=== PATIENT | male | born 1965 | race Caucasian/White ===

== ENCOUNTER 2017-09-03 03:00 | Emergency (ER) | payer BC, SELFPAY ==
[2017-09-03 03:01] VITALS: BP 187/116; PULSE 66; RESP 19; TEMP 35.8; O2SAT 100; BMI 38.5
--- NOTE | 2017-09-03 03:09 | CT_ITS ---
STUDY: CT ABDOMEN AND PELVIS WITHOUT CONTRAST REASON FOR EXAM: Male, 51 years old. Left flank pain RADIATION DOSAGE (If Supplied By Facility): CTDIvol = ( 22.22 ) mGy, DLP = ( 1265.99 ) mGycm TECHNIQUE: Transaxial images were obtained from the dome of the diaphragm to the symphysis pubis without oral contrast, and without intravenous contrast. Sagittal and coronal images were reconstructed. Individualized dose optimization techniques were used for this CT. COMPARISON: None. FINDINGS: The visualized lung bases are unremarkable. The visualized portions of the heart are within normal limits. Normal liver. Normal gallbladder and extrahepatic biliary system. Normal spleen. Normal pancreas. Normal bilateral adrenal glands. 2 mm nonobstructing right renal stone. A 2 mm stone is present in the distal left ureter or the left bladder base. There is mild acute obstructive uropathy on the left. Normal visualized stomach. Normal small intestine. There are multiple colonic diverticula consistent with diverticulosis. The appendix is visualized and appears normal. Normal abdominal aorta. Normal inferior vena cava. Normal retroperitoneum. Normal abdominal wall. Normal osseous structures. CT/Abdomen/Pelvis without Cont IMPRESSION: A 2 mm stone is present in the distal left ureter or the left bladder base. There is mild acute obstructive uropathy on the left. Electronically Signed: Mykel King MD at 4:52 EDT Tel , Service support ,
--- NOTE | 2017-09-03 03:11 | ED.DCSUM_ITS ---
- ER Visit Summary Date of Service: 09/03/17 Chief Complaint: [] Left flank pain History of Present Illness: The patient is a 51 M awoke with left flank pain an hour ago at sleep continuous sharp pain in the left flank moderate severity associated some mild nausea. He is ibuprofen. No history of kidney stones. Physical Examination: Vital signs reviewed General: Well-nourished well-developed appears uncomfortable in pain Head: Normocephalic atraumatic Eyes: Pupils equal round and reactive to light extraocular movements intact ENT: TMs clear no hemotympanum no trauma Neck: Nontender full range of motion Cardiovascular: Regular rate rhythm no murmurs normal S1-S2 Respiratory: No distress clear to auscultation bilaterally chest nontender Abdomen: Soft nontender nondistended normal bowel sounds no masses Back: Nontender no CVA tenderness Extremities: Nontender active range of motion ?4 extremities no trauma Skin: Normal color no trauma Neuro alert oriented cranial nerves II through XII intact normal strength sensation reflexes Test Results: [] Emergency Department Course and Treatment: [] IV fluids morphine Zofran and Toradol given. Lab work CT abdomen pelvis obtained work shows a 2 mm kidney stone distal left ureter. Chemistries normal except BUN 31. CBC normal. Patient given IV fluids morphine Dilaudid Zofran Toradol. On reevaluation he is pain-free. Will be given Percocet Zofran for home. Will follow-up as an outpatient with urology. He may have already passed it. Treatment Plan: [] Disposition: [] Impression: [] Left-sided kidney stone 2 mm This note was generated with [employer] dictation software. It may contain incorrect words, spelling, and punctuation that were not noted in review of the chart prior to signing ED Disposition - Plan for ED Patient: Chief Complaint: Flank Pain Referrals: Hemal Salazar MD [Primary Care Provider] -
[2017-09-03] MEDS: Ketorolac 30 MG/ML Syringe IV (03:17)
[2017-09-03] MEDS: Ondansetron 4 MG/2 ML Vial IV (03:17)
[2017-09-03] MEDS: morphine 8 MG/ML Syringe IV (03:17)
[2017-09-03] MEDS: 0.9% Normal Saline 1,000 ML 250 ML IV (03:17)
[2017-09-03 03:30] LABS: Absolute Lymphocyte Count 4.12 X10^3/ul (0.83-4.51); Absolute Neutrophil Count 5.5 X10^3/uL (2.0-7.7); Basophil# 0.04 X10^3/uL; Basophil% 0.4 % (0-1); Eosinophil# 0.37 X10^3/uL; Eosinophils% 3.5 % (0-5); Hematocrit 44.6 % (40-54); Hemoglobin 15.1 g/dl (13.0-16.5); Lymphocyte # 4.12 X10^3/ul (4.0); Lymphocyte % 38.5 % (19-41); Mean Corp Hgb Conc 33.9 g/gl (32-36); Mean Corpuscular Hgb 28.5 pg (27.0-32.0); Mean Corpuscular Volume 84.3 fL (80-94); Mean Platelet Vol. 10.2 fl (6.2-12.0); Monocyte# 0.63 X10^3/uL; Monocyte% 5.9 % (0-10); Neutrophil # 5.51 X10^3/uL (2.7-7.7); Neutrophil % 51.4 % (47-70); POSITIVE COUNT NO; POSITIVE DIFFERENTIAL NO; POSITIVE MORPHOLOGY NO; Platelet Count 240 K/mm3 (150-450); RBC Distribution Width CV 13.6 % (11.6-14.6); RBC Distribution Width SD 41.5 fl (35.1-43.9); Red Blood Count 5.29 M/mm3 (4.6-6.2); White Blood Count 10.7 K/mm3 (4.4-11.0)
[2017-09-03 03:39] LABS: Anion Gap 10 (5-15); BUN 31 mg/dL (7-18); BUN/Creat Ratio 29.8 RATIO (10-20); Calcium,Total 8.7 mg/dL (8.5-10.1); Chloride 109 mmol/L (98-107); Creatinine, Serum 1.04 mg/dL (0.70-1.30); EST Glomerular Filtration Rate 80 mL/min (>60); Est Glom Filt Rate - Afr Amer 96 mL/min (>60); Estimated Creatinine Clearance 88.49 ml/min; Glucose 119 mg/dL (74-106); Sodium Level 142 mmol/L (136-145)
[2017-09-03] MEDS: HYDROmorphone 1 MG/ML Syringe IV (03:46)
[2017-09-03] MEDS: 0.9% Normal Saline 1,000 ML 999 ML IV (03:46)
[2017-09-03 05:21] VITALS: BP 143/103; PULSE 58; RESP 16; O2SAT 98
--- NOTE | 2017-09-03 05:22 | ED.DEP ---
ED Disposition - Plan for ED Patient: Disposition: Home or Assisted Living Chief Complaint: Flank Pain Instructions: ED Stone Renal W Colic Prescriptions: Oxycodone HCl/Acetaminophen [Percocet 5/325] 2 tab PO Q6H PRN PRN 3 Days #12 tab PRN Reason: Pain Ondansetron [Zofran Odt] 4 mg PO Q8H PRN PRN #10 tab PRN Reason: Nausea Referrals: Hemal Salazar MD [Primary Care Provider] - Don Feliz MD [STAFF PHYSICIAN] -
== END 2017-09-03 05:28 | disposition home or self-care (01) ==
PROVIDERS: Emergency Provider Emergency Medicine; Family Provider Family Medicine; PCP Family Medicine
DX: N20.0 Calculus of kidney (principal); E66.9 Obesity, unspecified
CPT/HCPCS: 74176; 80048; 85025; 96361; 96374; 96375; 99282; A4216; J2405

== ENCOUNTER → 2018-08-15 | Outpatient (CLI) | payer BC, SELFPAY ==
--- NOTE | 2018-08-15 13:34 | VDLE_ITS ---
Reason For Study: LEG PAIN RIGHT LEFT GSV is normal. CFV is compressible, spontaneous, phasic, CFV is compressible, spontaneous, phasic, competent, and demonstrates normal competent and demonstrates normal augmentation. augmentation. FV is compressible, spontaneous, phasic, competent and demonstrates normal augmentation. POP V is compressible, spontaneous, phasic, competent and demonstrates normal augmentation. T/P Trunk is compressible. PTV is compressible. RT PerV is compressible. Procedure Exam performed in department. A preliminary report was called and/or faxed to Dr. Salazar. Interpretation Summary Deep veins of the right lower extremity are patent and compressible segmentally. There is no evidence of right lower extremity deep vein thrombosis. Valvular competence appears intact within the proximal deep venous system on the right . The right greater saphenous vein appears patent and compressible segmentally. Ordering Physician: Erick Salazar Referring Physician: Erick Salazar Performed By: Yola Glass RVT
== END | disposition home or self-care (01) ==
LOC: CVS 13:33
PROVIDERS: Family Provider Family Medicine; PCP Family Medicine; Referring Provider Specialist; Visit Provider Specialist
DX: M79.661 Pain in right lower leg (principal)
CPT/HCPCS: 93971

== ENCOUNTER 2021-07-08 15:01 | Emergency (ER) | payer BC, SELFPAY ==
[2021-07-08 15:03] VITALS: BP 156/106; PULSE 79; RESP 14; TEMP 35.7; O2SAT 93; BMI 41.8
[2021-07-08] MEDS: Albuterol 2.5 MG/3 ML VIAL.NEB. INHALATION (15:29)
[2021-07-08 15:31] VITALS: PULSE 70; RESP 20
--- NOTE | 2021-07-08 15:33 | ED.VIS.DYS ---
HPI History of Present Illness Chief Complaint: Occup Expose Detail of Chief Complaint: Exposure to bleach and phosphoric acid Informant: patient and spouse/S.O. Onset/Context/Timing Onset: Hours Context: sudden Timing: Continuous Quality: Positive for Dyspnea on exertion Current Severity: Mild Maximum Severity: Moderate Worsened by: Exertion Relieved by: Nothing Associated Symptoms cough; Negative for rhinorrhea, post nasal drip, ear pain, fever, sore throat, subjective, chills, sweats, clear sputum, white sputum, yellow sputum or green sputum Chest Pain: Positive for None Narrative Narrative: Patient is a 55-year-old male with history of elevated cholesterol who presents because of shortness of breath after mixing bleach with phosphoric acid. States there was a fan running. He was in a confined area. His exposure time was a minute or 2 at most. He had asthma as a child. Was in incubator for months when he was a child. He has no other complaints. PE Risk Factors: Negative for Cancer, OCP + Smoking + > 35, Prior DVT or PE, Recent immobilization, Recent surgery and Recent travel Prior similar symptoms: No Recent Illness/Hospitalization: No PFSH PFSH Medical History (Updated 07/08/21 @ 16:[address] Uriah Waggoner MD) Asthma Lumbar disc herniation with radiculopathy Home Medications ondansetron 4 mg PO Q8H PRN PRN #10 tab 09/03/17 [Rx Last Taken Unknown] oxycodone-acetaminophen 2 tab PO Q6H PRN PRN 3 Days #12 tab 09/03/17 [Rx Last Taken Unknown] albuterol sulfate [Ventolin HFA] 2 puff INHALATION Q2H PRN #1 g 07/08/21 [Rx Last Taken Unknown] prednisone 60 mg PO DAILY #9 tablet 07/08/21 [Rx Last Taken Unknown] Allergy/AdvReac Type Severity Reaction Status Date / Time No Known Allergies Allergy Verified 07/08/21 15:03 Social History (Updated 07/08/21 @ 15:[address] Uriah Waggoner MD) household members: spouse Smoking Status: Never smoker alcohol intake: never substance use type: does not use what type of physical activity do you participate in: none ROS ROS ED Constitutional Constitutional ED: Denies chills, fever(s), sweats or weight loss Eyes Eyes: Denies blurry vision, change in vision or diplopia ENT ENT ED: Denies ear pain, rhinorrhea or sore throat Cardiovascular Cardiovascular: Denies chest pain, orthopnea, palpitations, paroxysmal nocturnal dyspnea or racing heartbeat Respiratory/Chest Respiratory/Chest: Reports cough, dyspnea and dyspnea on exertion; Denies orthopnea, paroxysmal nocturnal dyspnea or sputum Gastrointestinal Gastrointestinal: Denies abdominal pain, diarrhea, nausea or vomiting Hematologic/Lymphatic Hematologic/Lymphatic: Denies easy bleeding, easy bruising or lymphadenopathy Allergic/Immunologic Allergic/Immunologic ED: Denies mouth swelling, tongue swelling or urticaria EXAM Physical Exam Const Vital Signs: 07/08/21 15:03 07/08/21 15:31 07/08/21 15:41 Temperature 96.2 F L Temperature Source Temporal Pulse Rate 79 70 78 Respiratory Rate 14 20 H 16 Respiratory Effort Respiratory Depth Respiratory Pattern Normal Blood Pressure 156/106 H 126/78 H Blood Pressure Mean 122 94 Pulse Ox 93 98 Oxygen Delivery Method Room Air Room Air 07/08/21 15:44 Temperature Temperature Source Pulse Rate Respiratory Rate Respiratory Effort Normal Respiratory Depth Normal Respiratory Pattern Normal Blood Pressure Blood Pressure Mean Pulse Ox Oxygen Delivery Method Room Air Positive well nourished, well developed and obese General Appearance ED: well developed; Negative for NAD or pallor Nutritional Appearance: obese HEENT Reports TM's clear and moist mucous membranes atraumatic and tenderness Tympanic Membrane ED: Yes TM's clear Eyes PERRL and EOMs intact bilaterally General Eye ED: Negative for pale conjunctiva or scleral icterus Neck no lymphadenopathy, supple, no meningeal signs and no JVD Resp normal respiratory effort and No clear to auscultation bilaterally Auscultation: wheezes expiratory wheezes and throughout and diminished lung sounds Cardio regular rate, regular rhythm, S1 normal heart sound, S2 normal heart sound and no murmurs GI non-tender, non-distended and no masses Auscultation: normoactive bowel sounds Palpation: soft Back/Spine normal to inspection Back/Spine Narrative: Skin is slightly flushed. Extremity normal to inspection Neuro oriented x3 and CN's II-XII intact bilaterally Farnam Coma Scale: document GCS findings Spontaneous Obeys Commands Oriented 15 Sensorium / Orientation: alert Psych mental status grossly normal Thought Process: normal thought process Skin no wounds General Skin Exam: Negative for jaundice or pallor Lesions: no lesions MDM MDM MDM Narrative Medical decision making narrative: Patient with wheezing due to chemical exposure/pneumonitis. Chest x-ray was ordered. Aerosol treatment and prednisone. Patient was reassessed at 1624. He is wheeze free. He is no longer coughing. Plan is to discharge with prescription for inhaler and short burst of prednisone. Radiography Chest X-Ray - ED: 2 View (Was reviewed and independently interpreted by me as negative for acute process. Cardiac silhouette size normal. Lung parenchyma reveals mild chronic interstitial changes. The perihilar regions unremarkable. The also structures are unremarkable. Interpreted by me at 1600) Diagnostic Testing: Clinical Impression(s) from Imaging Studies Chest X-Ray 07/08/21 15:47 IMPRESSION: No radiographic evidence of acute cardiopulmonary disease. at 1619 Reported and signed by: Mona Manley MD Electronically Signed: Mona Manley MD at 16:18 EDT Reading Location ID and State: [facility] / [place] Tel , Service support , Discharge Plan Triage Chief Complaint: Occup Expose ED Provider: Uriah Waggoner Dx/Rx/DC Orders Clinical Impression: Acute chemical pneumonitis, Acute bronchospasm Instructions: ED Chemical Inhalation Prescriptions: New albuterol sulfate [Ventolin HFA] 1 INHALER inhaler 2 puff inhalation Q2H PRN (Reason: Wheezing) Qty: 1 RF: 0 prednisone 20 MG tablet 60 mg PO DAILY Qty: 9 RF: 0 No Action oxycodone-acetaminophen 1 TABLET tablet 2 tab PO Q6H PRN PRN (Reason: Pain) 3 Days Qty: 12 RF: 0 ondansetron 4 MG tablet 4 mg PO Q8H PRN PRN (Reason: Nausea) Qty: 10 RF: 0 Primary Care Provider: Hemal Salazar Referrals: Hemal Salazar MD [Primary Care Provider] - Disposition Disposition: Home, Self Care
[2021-07-08 15:41] VITALS: BP 126/78; PULSE 78; RESP 16; O2SAT 98
[2021-07-08 15:44] VITALS: O2SAT 96
--- NOTE | 2021-07-08 15:47 | RAD_ITS ---
HISTORY: Chemical exposure, wheezing and coughing. TECHNIQUE: XR Chest 2 Views. # of images incl. paperwork: 2. COMPARISON: None. FINDINGS: CARDIOMEDIASTINAL STRUCTURES: Cardiac silhouette not enlarged. Mediastinal contour unremarkable. LUNGS: Radiographically clear. PLEURA: No pleural effusion or pneumothorax. OSSEOUS STRUCTURES: Unremarkable. RAD/Chest PA and Lateral IMPRESSION: No radiographic evidence of acute cardiopulmonary disease. at 1619 Reported and signed by: Mona Manley MD Electronically Signed: Mona Manley MD at 16:18 EDT ,
[2021-07-08] MEDS: predniSONE 20 MG Tablet 60 MG PO (16:04)
[2021-07-08 16:36] VITALS: BP 132/78; PULSE 66; RESP 18; TEMP 36.6; O2SAT 98
== END 2021-07-08 16:37 | disposition home or self-care (01) ==
PROVIDERS: Emergency Provider Emergency Medicine; PCP Family Medicine; Visit Provider Emergency Medicine
DX: T54.2X1A Toxic effect of corrosive acids and acid-like substances, accidental (unintentional), initial encounter (principal); Z68.41 Body mass index [BMI] 40.0-44.9, adult; J68.0 Bronchitis and pneumonitis due to chemicals, gases, fumes and vapors; E78.00 Pure hypercholesterolemia, unspecified; T54.94XA Toxic effect of unspecified corrosive substance, undetermined, initial encounter; Y92.9 Unspecified place or not applicable; J45.909 Unspecified asthma, uncomplicated; E66.9 Obesity, unspecified
CPT/HCPCS: 71046; 94640; 99284

== ENCOUNTER 2022-03-14 13:02 | Emergency (ER) | payer BC, SELFPAY ==
[2022-03-14 13:05] VITALS: BP 165/111; PULSE 79; RESP 21; TEMP 36.6; O2SAT 97; BMI 43.7
--- NOTE | 2022-03-14 13:22 | EKG12_ITS ---
Test Reason : CP Blood Pressure : / mmHG Vent. Rate : 072 BPM Atrial Rate : 072 BPM P-R Int : 170 ms QRS Dur : 162 ms QT Int : 432 ms P-R-T Axes : 021 -33 -03 degrees QTc Int : 473 ms Normal sinus rhythm Left axis deviation Right bundle branch block Abnormal ECG Confirmed by CORETTA BOURGEOIS, EYAL ([id number]), senior technical editor NORMAN VILLATORO ([id number]) on 03/15/2022 12:07:20 PM Referred By: ANAHY Confirmed By:EYAL HITCHCOCK MD
--- NOTE | 2022-03-14 13:22 | RAD_ITS ---
HISTORY: chest pain. TECHNIQUE: XR Chest 1 View. COMPARISON: 07/08/2021. FINDINGS: CARDIOMEDIASTINAL BORDERS: Cardiac silhouette within normal limits in size. Mediastinal contour unremarkable. LUNGS: Radiographically clear. PLEURA: No pleural effusion or pneumothorax seen. OSSEOUS STRUCTURES: Unremarkable. RAD/Chest 1 View (Portable) IMPRESSION: No acute cardiopulmonary process identified. Electronically Signed: Mona Manley MD at 13:53 EST ,
[2022-03-14] MEDS: Aspirin 81 MG TAB.CHEW 324 MG PO (13:27)
[2022-03-14 13:34] LABS: Absolute Lymphocyte Count 2.54 X10^3/uL (0.83-4.51); Absolute Neutrophil Count 4.5 X10^3/uL (2.0-7.7); Basophil# 0.04 X10^3/uL; Basophil% 0.5 % (0-1); Eosinophil# 0.42 X10^3/uL; Eosinophils% 5.2 % (0-5); Hematocrit 45.4 % (40-54); Hemoglobin 15.7 g/dL (13.0-16.5); Lymphocyte # 2.54 X10^3/ul (0.83-4.51); Lymphocyte % 31.4 % (19-41); Mean Corp Hgb Conc 34.6 g/dL (32-36); Mean Corpuscular Hgb 28.9 pg (27.0-32.0); Mean Corpuscular Volume 83.5 fL (80-94); Mean Platelet Vol. 9.6 fl (6.2-12.0); Monocyte# 0.55 X10^3/uL; Monocyte% 6.8 % (0-10); NRBC Flagged by Analyzer 0 % (0-5); Neutrophil # 4.51 X10^3/uL (2.7-7.7); Neutrophil % 55.6 % (47-70); Platelet Count 229 K/mm3 (150-450); RBC Distribution Width CV 13.3 % (11.6-14.6); RBC Distribution Width SD 40.5 fl (35.1-43.9); Red Blood Count 5.44 M/mm3 (4.6-6.2); White Blood Count 8.1 K/mm3 (4.4-11.0)
--- NOTE | 2022-03-14 13:42 | EDS_ITS ---
HPI <MONTSE Arciniega - Last Filed: 03/14/22 18:04> History of Present Illness Chief Complaint: Chest Pain Narrative Narrative: 56-year-old male with PMH of HLD, obesity presents with dizziness. He was standing in his [employer] lobby talking to someone when he suddenly felt lightheaded with mild chest pressure and sat down and the symptoms resolved. He now feels back to normal. There is no associated shortness of breath, nausea, vomiting or diaphoresis. No visual loss or diplopia. No other focal motor or sensory changes. He states he has been very stressed and during this event was actually telling a story about his friend who had significant medical problems. He thinks he may have just been anxious. PFSH <MONTSE Arciniega - Last Filed: 03/14/22 18:04> [facility] Medical History (Updated 03/14/22 @ 18:04 by MONTSE Arciniega) Asthma Lumbar disc herniation with radiculopathy Home Medications albuterol sulfate 90 mcg/actuation aerosol inhaler (Ventolin HFA) 2 puff inhalation Q2H PRN Wheezing #1 g 07/08/21 [Rx Last Taken Unknown] Allergy/AdvReac Type Severity Reaction Status Date / Time No Known Allergies Allergy Verified 03/14/22 13:03 Social History (Updated 07/08/21 @ 15:[address] Uriah Waggoner MD) household members: spouse Smoking Status: Never smoker alcohol intake: never substance use type: does not use what type of physical activity do you participate in: none EXAM <MONTSE Arciniega - Last Filed: 03/14/22 18:04> Physical Exam Const Vital Signs: 03/14/22 13:05 03/14/22 13:22 03/14/22 16:02 Temperature 97.9 F Temperature Source Temporal Pulse Rate 79 84 Respiratory Rate 21 H 18 Blood Pressure 165/111 H 151/107 H Blood Pressure Mean 129 121 Pulse Ox 97 95 Oxygen Delivery Method Room Air Room Air Room Air 03/14/22 16:33 03/14/22 16:42 Temperature Temperature Source Pulse Rate Respiratory Rate 18 Blood Pressure 132/94 H Blood Pressure Mean 106 Pulse Ox Oxygen Delivery Method <Dr. Renard Bahena MD - Last Filed: 03/14/22 16:22> Physical Exam Const Vital Signs: 03/14/22 13:05 03/14/22 13:22 03/14/22 16:02 Temperature 97.9 F Temperature Source Temporal Pulse Rate 79 84 Respiratory Rate 21 H 18 Blood Pressure 165/111 H 151/107 H Blood Pressure Mean 129 121 Pulse Ox 97 95 Oxygen Delivery Method Room Air Room Air Room Air 03/14/22 16:33 03/14/22 16:42 Temperature Temperature Source Pulse Rate Respiratory Rate 18 Blood Pressure 132/94 H Blood Pressure Mean 106 Pulse Ox Oxygen Delivery Method [facility] <MONTSE Arciniega - Last Filed: 03/14/22 18:04> [facility] Narrative Medical decision making narrative: PeersPatient presents with an episode of lightheadedness and chest pressure that has fully resolved upon arrival. He appears well and nontoxic. BP 165/111 with otherwise normal vital signs. His medical exam is unremarkable. EKG is normal sinus rhythm with RBBB but no acute ischemia. Troponins x2 are negative and the rest of his blood work and chest x-ray is unremarkable. Patient will need an outpatient stress test and since he does remain persistently hypertensive at 151/107 I will discuss with his primary care to arrange a stress test and discuss BP. Dr. Salazar recommended starting lisinopril, however then we rechecked a manual pressure and it was 130/90 so patient was instructed to call his office this week to discuss blood pressure and arrange a stress test. Return for any new or worsening symptoms. He was discharged in stable condition. I have personally performed a face to face assessment of the patient and have reviewed the SURESH Note. I performed a substantive portion of the visit including all aspects of the following. My gregory findings include: History is [56-year-old male [employer] with atypical chest discomfort and near syncope. Being evaluated by myself with our physician web production assistant. Patient has no cardiac history. A friend of his had recent coronary disease and needed 3 stents. Multiple family members of him have been treated for coronary artery disease and MIs. He denies any recent exertional chest pain. 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 He denies any recent illness. 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 He is a non-smoker.] Exam is [middle-aged male no acute distress. Vital signs stable afebrile. HEENT exam normal. Neck nontender. Lungs are clear. Heart regular rhythm no murmur. Rate about 80. Chest wall nontender. Abdomen soft nontender. Moving all 4 extremities. Neurologic exam normal.] Medical Decision Making [patient's work-up is unremarkable. White count 8. H&H 15 and 45. Electrolytes unremarkable gap of 7. Normal creatinine. First and second troponin 2 hours apart were both normal at 16 and 18. We will speak to the patient's primary care physician. He will be discharged home. Outpatient follow-up for outpatient stress testing. We will recheck his blood pressure prior to discharge.] Other additions or changes: [None] Lab Data Labs: Laboratory Results - last 24 hr 03/14/22 03/14/22 03/14/22 13:20 13:20 15:50 WBC 8.1 RBC 5.44 Hgb 15.7 Hct 45.4 MCV 83.5 MCH 28.9 MCHC 34.6 RDW Std Deviation 40.5 RDW Coeff of Michael 13.3 Plt Count 229 MPV 9.6 Immature Gran % (Auto) 0.500 Neut % (Auto) 55.6 Lymph % (Auto) 31.4 [place] % (Auto) 6.8 Eos % (Auto) 5.2 H Baso % (Auto) 0.5 Absolute Neuts (auto) 4.5 Absolute Lymphs (auto) 2.54 Nucleated RBC % 0 Sodium 140 Potassium 3.6 Chloride 108 H Carbon Dioxide 25.0 Anion Gap 7 BUN 27 H Creatinine 0.87 Estim Creat Clear Calc 96.73 Est GFR (MDRD) Af Amer 116 Est GFR (MDRD) Non-Af 96 BUN/Creatinine Ratio 30.9 H Glucose 153 H Calcium 9.4 Troponin I High Sens 16 18 Radiography Diagnostic Testing: Clinical Impression(s) from Imaging Studies Chest X-Ray 03/14/22 13:22 IMPRESSION: No acute cardiopulmonary process identified. Electronically Signed: Mona Manley MD at 13:53 EST , <Dr. Renard Bahena MD - Last Filed: 03/14/22 16:22> MDM MDM Narrative Medical decision making narrative: I have personally performed a face to face assessment of the patient and have reviewed the SURESH Note. I performed a substantive portion of the visit including all aspects of the following. My gregory findings include: History is [56-year-old male [employer] with atypical chest discomfort and near syncope. Being evaluated by myself with our physician web production assistant. Patient has no cardiac history. A friend of his had recent coronary disease and needed 3 stents. Multiple family members of him have been treated for coronary artery disease and MIs. He denies any recent exertional chest pain. 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 He denies any recent illness. Says he is under a lot of stress because he has a lot of decisions to make regarding his forearm and additional purchase of land. He is a non-smoker.] Exam is [middle-aged male no acute distress. Vital signs stable afebrile. HEENT exam normal. Neck nontender. Lungs are clear. Heart regular rhythm no murmur. Rate about 80. Chest wall nontender. Abdomen soft nontender. Moving all 4 extremities. Neurologic exam normal.] Medical Decision Making [patient's work-up is unremarkable. White count 8. H&H 15 and 45. Electrolytes unremarkable gap of 7. Normal creatinine. First and second troponin 2 hours apart were both normal at 16 and 18. We will speak to the patient's primary care physician. He will be discharged home. Outpatient follow-up for outpatient stress testing. We will recheck his blood pressure prior to discharge.] Other additions or changes: [None] Lab Data Attestation: I reviewed the patient's lab results. Lab results narrative: CBC unremarkable. BMP unremarkable. First troponin 16. Second troponin 18. Labs: Laboratory Results - last 24 hr 03/14/22 03/14/22 03/14/22 13:20 13:20 15:50 WBC 8.1 RBC 5.44 Hgb 15.7 Hct 45.4 MCV 83.5 MCH 28.9 MCHC 34.6 RDW Std Deviation 40.5 RDW Coeff of Michael 13.3 Plt Count 229 MPV 9.6 Immature Gran % (Auto) 0.500 Neut % (Auto) 55.6 Lymph % (Auto) 31.4 [place] % (Auto) 6.8 Eos % (Auto) 5.2 H Baso % (Auto) 0.5 Absolute Neuts (auto) 4.5 Absolute Lymphs (auto) 2.54 Nucleated RBC % 0 Sodium 140 Potassium 3.6 Chloride 108 H Carbon Dioxide 25.0 Anion Gap 7 BUN 27 H Creatinine 0.87 Estim Creat Clear Calc 96.73 Est GFR (MDRD) Af Amer 116 Est GFR (MDRD) Non-Af 96 BUN/Creatinine Ratio 30.9 H Glucose 153 H Calcium 9.4 Troponin I High Sens 16 18 Radiography Chest X-Ray - ED: 1 View, Read by ED Physician, Read by Radiologist, Heart, Lungs, Mediastinum, Bony Structures, No Acute Disease and Chronic Changes Diagnostic Testing: Clinical Impression(s) from Imaging Studies Chest X-Ray 03/14/22 13:22 IMPRESSION: No acute cardiopulmonary process identified. Electronically Signed: Mona Manley MD at 13:53 EST Reading Location ID and State: [facility] / [place] Tel , Service support , Chest x-ray, portable, single view interpreted by myself and radiologist shows no acute abnormality. Rhythm Strip Rhythm Strip: Sinus Rhythm Rate: 72 Ectopy: None EKG Initial EKG: Attestation: I personally reviewed and interpreted this EKG as follows: Interpretation: Sinus Rhythm and No Acute Injury Pattern Comments: Normal sinus rhythm. Rate 72. Right bundle branch block. Discharge Plan Triage Chief Complaint: Chest Pain ED Midlevel Provider: Julita Segura ED Provider: Renard Bahena Dx/Rx/DC Orders Clinical Impression: Chest pain Instructions: Blood Pressure Check Steps, ED Chest Pain, Uncertain Cause Prescriptions: No Action albuterol sulfate [Ventolin HFA] 1 INHALER inhaler 2 puff inhalation Q2H PRN (Reason: Wheezing) Qty: 1 0RF Primary Care Provider: Hemal Salazar Referrals: Hemal Salazar MD [Primary Care Provider] - Activity Restrictions/Additional Instructions: Please check your blood pressure once a day at home and keep a log and take it to your appointment. Call Dr. Calderon's office to set up an appointment to check your blood pressure and arrange a stress test. If you develop chest pain prior to seeing your doctor come back to the ER. Disposition Disposition: Home, Self Care Discharge Date/Time: 03/14/22 16:42
[2022-03-14 13:49] LABS: Anion Gap 7 (5-15); BUN 27 mg/dL (7-18); BUN/Creat Ratio 30.9 RATIO (10-20); Calcium,Total 9.4 mg/dL (8.5-10.1); Chloride 108 mmol/L (98-107); Creatinine, Serum 0.87 mg/dL (0.70-1.30); EST Glomerular Filtration Rate 96 mL/min (>60); Est Glom Filt Rate - Afr Amer 116 mL/min (>60); Estimated Creatinine Clearance 96.73 ml/min; Glucose 153 mg/dL (74-106); Potassium 3.6 mmol/L (3.5-5.1); Sodium Level 140 mmol/L (136-145); Troponin-I HS (w/2H Reflex) 16 pg/mL (3.0-78.0)
[2022-03-14 15:29] LABS: Reflex Troponin-HS? (from REC) Y
[2022-03-14 16:02] VITALS: BP 151/107; PULSE 84; RESP 18; O2SAT 95
[2022-03-14 16:14] LABS: Troponin-I HS 18 pg/mL (3.0-78.0)
[2022-03-14 16:33] VITALS: BP 132/94
[2022-03-14 16:42] VITALS: RESP 18
== END 2022-03-14 16:42 | disposition home or self-care (01) ==
PROVIDERS: Physician Assistant; Emergency Provider Emergency Medicine; PCP Family Medicine; Visit Provider Emergency Medicine
DX: R07.9 Chest pain, unspecified (principal); I25.10 Atherosclerotic heart disease of native coronary artery without angina pectoris; E78.5 Hyperlipidemia, unspecified; E66.9 Obesity, unspecified; R42 Dizziness and giddiness; J45.909 Unspecified asthma, uncomplicated
CPT/HCPCS: 71045; 80048; 84484; 85025; 93005; 99285; A4216

== ENCOUNTER 2024-09-07 07:46 | Outpatient (CLI) | payer BC, SELFPAY ==
--- NOTE | 2024-09-07 07:49 | CT_ITS ---
PROCEDURE: LIMITED CHEST CT CARDIAC ONLY REASON FOR EXAM: CAD SCREENING TECHNIQUE: Supine chest CT without contrast. One or more dose reduction techniques were used (e.g., Automated exposure control, adjustment of the mA and/or kV according to patient size, use of iterative reconstruction technique). Dose report: CTDI volume: 22.58. DLP: 361.3 COMPARISON: None FINDINGS: Hardware: None Lymph nodes: No mediastinal hilar or axillary lymphadenopathy. Heart and Vasculature: Normal heart size. No pericardial effusion. Coronary Artery Calcifications: Present. Minimal coronary artery calcification. Lungs and Airways: The lungs are normally expanded and clear. No septal thickening nodules or abnormal pulmonary opacities. Pleura: No pleural effusion Upper Abdomen: Unremarkable. Bones: Bone windows are unremarkable. CT/Limited Chest CT Cardiac Only IMPRESSION: Coronary artery calcification (CAC) is is present Reading Location: [place] [id number]
--- NOTE | 2024-09-07 11:36 | CA.SCORE ---
Calcium Scoring Date of Study:: 09/07/24 Indications Indications: Fh Coronary Calcium Scoring: High-resolution Computed Tomographic imaging of the chest was performed on [ 09/07/24], with particular attention paid to the coronary arteries. Images from the examination were analyzed for the presence and extent of coronary artery calcification , using coronary calcium quantification software. The patient tolerated the procedure well and there were no complications. The results of the coronary calcification analysis are provided below. Findings Coronary Artery Left Main (LM): 0 Left Anterior Descending (LAD): 0 Left Circumflex (LCX): 0 Right Coronary Artery (RCA): 4.77 Total Agatston Score: 4.77 Percentile Rankin% Calcium Scoring Interpretation: Different methods to categorize the overall amount of coronary plaque. Overall amount CAC SIS Visual of coronary plaque P1 Mild -100 <2 1-2 vessels with mild amount of plaque P2 Moderate 101-300 3-4 1-2 vessels with moderate amount, 3 vessels with mild amount of plaque P3 Severe 301-999 5-7 3 vessels with moderate amount, 1 vessel with severe amount of plaque P4 Extensive >1000 >8 2-3 vessels with severe amount of plaque Conclusion: Mild single-vessel atherosclerotic plaquing noted.
== END 2024-09-07 23:59 | disposition home or self-care (01) ==
LOC: CT 07:48
PROVIDERS: PCP Family Medicine; Referring Provider Family Medicine; Visit Provider Family Medicine
DX: E78.00 Pure hypercholesterolemia, unspecified (principal); Z82.49 Family history of ischemic heart disease and other diseases of the circulatory system
CPT/HCPCS: 75571; 76380